=== PATIENT | female | born 1950 | race Caucasian/White ===

== ENCOUNTER 2023-11-24 11:54 | Outpatient (CLI) | payer MEDICARE, OTHER | END 2023-11-24 11:55 | disposition home or self-care (01) | LOC: CSHCP 11:54 | PROVIDERS: ATTEND Internal Medicine Critical Care Medicine | DX: J47.9 Bronchiectasis, uncomplicated (principal); R94.2 Abnormal results of pulmonary function studies | CPT/HCPCS: 94060; 94726; 94729; 94760 ==